=== PATIENT | male | born 1965 | race Caucasian/White ===

== ENCOUNTER 2016-10-22 09:25 | Day surgery (SDC) | payer OTHER ==
[2016-10-19 13:57] VITALS: BP 107/75
[~2016-10-22] VITALS: Ht 208.3 cm; Wt 86.4 kg
[~2016-10-22 09:25] MED LIST: No meds per pt.
[2016-10-22] MEDS ORDERED: LACTATED RINGERS 1,000 ML IV SCH (09:55)
[2016-10-22 09:58] VITALS: BP 107/75
[2016-10-22] MEDS ORDERED: BUPIVACAINE/PF-EPI 0.5% 1:200K ONE (10:57)
[2016-10-22] MEDS ORDERED: HYDROmorphone 1 MG/ML, 1ML ONE (11:29)
[2016-10-22] MEDS ORDERED: FENTANYL PF 100 MCG/2ML ONE (11:30)
[2016-10-22] MEDS ORDERED: DEXAMETHASONE 4 MG/ML, 5ML ONE (11:35)
[2016-10-22] MEDS ORDERED: PROPOFOL 10 MG/ML, 20ML ONE (11:35)
[2016-10-22] MEDS ORDERED: ONDANSETRON 2MG/ML, 2ML ONE (11:35)
[2016-10-22] MEDS ORDERED: METOCLOPRAMIDE 5 MG/ML, 2ML ONE (11:35)
[2016-10-22] MEDS ORDERED: CEFAZOLIN 1,000 MG ONE (11:35)
[2016-10-22] MEDS ORDERED: HYDROmorphone 1 MG/ML, 1ML IV PRN (12:30)
[2016-10-22] MEDS ORDERED: ONDANSETRON 2MG/ML, 2ML IVPush PRN (12:30)
[2016-10-22] MEDS ORDERED: OXYcodone 5 MG/5 ML ORAL.SOL UDC PO PRN (12:30)
[2016-10-22] MEDS ORDERED: FENTANYL PF 100 MCG/2ML IV PRN (12:30)
[2016-10-22] MEDS ORDERED: LABETALOL 5MG/ML, 20ML IV PRN (12:30)
[2016-10-22] MEDS ORDERED: MEPERIDINE/PF 25MG/0.5ML IVPush PRN (12:30)
[2016-10-22] MEDS ORDERED: MIDAZOLAM 1 MG/ML, 2ML IV PRN (12:30)
[2016-10-22] MEDS ORDERED: hydrALAzine 20 MG/ML, 1ML IV PRN (12:30)
[2016-10-22] MEDS ORDERED: PROMETHAZINE 25 MG/ML, 1ML IV PRN (12:30)
[2016-10-22] MEDS ORDERED: OXYcodone 5 MG/5 ML ORAL.SOL UDC ONE (12:51)
== END 2016-10-22 14:50 ==
LOC: OUT 09:25
PROVIDERS: ATTEND Surgery
DX: K42.0 Umbilical hernia with obstruction, without gangrene (principal); D03.59 Melanoma in situ of other part of trunk
CPT/HCPCS: 11606; 49587; 88307; C1781; J0690; J1100; J1170; J2405; J2704; J2765; J3010; J7120